=== PATIENT | male | born 1985 | race Caucasian/White ===

== ENCOUNTER 2024-07-11 09:15 | Emergency (ER) | payer OTHER ==
[~2024-07-11] VITALS: Ht 167.6 cm; Wt 58.5 kg
[2024-07-11] MEDS ORDERED: ONDANSETRON HCL/PF 4 MG/2 ML VIAL ONE (10:00)
[2024-07-11] MEDS ORDERED: PHENOBARBITAL SODIUM 130 MG/ML VIAL IV ONE (10:00)
[2024-07-11] MEDS ORDERED: THIAMINE HCL 100 MG TABLET ONE (10:01)
[2024-07-11] MEDS: IV NS 0.9% 1,000 ML BAG IV ONE (10:09)
[2024-07-11] MEDS: ONDANSETRON HCL/PF - ER 4 MG/2 ML VIAL IV ONE (10:09)
[2024-07-11] MEDS: THIAMINE HCL 100 MG TABLET PO ONE (10:10)
[2024-07-11] MEDS: PHENOBARBITAL SODIUM 650 MG in IV NS 0.9% 100 ML IV ONE (10:54)
[2024-07-11] MEDS ORDERED: CHLO25CA22 PO (12:56)
[2024-07-11 13:12] VITALS: BP 118/83; TEMP 98.6; O2SAT 97
== END 2024-07-11 13:13 | disposition home or self-care (01) ==
LOC: ER 09:19
DX: R56.9 Unspecified convulsions (principal); F10.939 Alcohol use, unspecified with withdrawal, unspecified; Y90.9 Presence of alcohol in blood, level not specified
CPT/HCPCS: 99284; 96365; 96361; 96375; J2560; J2405 ×2; J7030 ×2